=== PATIENT | male | born 1965 | race American Indian/Alaskan Native ===

== ENCOUNTER 2022-01-24 18:32 | Inpatient (IN) | payer OTHER ==
[2022-01-24] MEDS ORDERED: CLOPIDOGREL 300 MG TAB PO ONE (18:40)
[2022-01-24] MEDS ORDERED: HEPARIN 10,000 UNITS/10 ML VIAL IV ONE (18:40)
[2022-01-24] MEDS ORDERED: NITROGLYCERIN 2% OINT 1 GM TP ONE ×2 (18:41→19:04)
[2022-01-24] MEDS ORDERED: ALBUTEROL 2.5 MG/3 ML NEBU IH PRN (18:46)
[2022-01-24] MEDS ORDERED: oxyCODONE /ACETAMINOPHEN 5-325MG TAB PO PRN (18:46)
[2022-01-24] MEDS ORDERED: MORPHINE 4 MG/1 ML INJ IV PRN (18:46)
[2022-01-24] MEDS ORDERED: ACETAMINOPHEN 325 MG TAB PO PRN (18:46)
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
[2022-01-24] MEDS ORDERED: MIDAZOLAM 2 MG/2 ML INJ ONE (18:51)
[2022-01-24] MEDS ORDERED: ATROPINE 0.1% (1 MG/10 ML) CARDIAC SYRINGE ONE (18:51)
[2022-01-24] MEDS ORDERED: LIDOCAINE PF 100 MG/5 ML (CARDIAC SYRINGE) IV ONE (18:51)
[2022-01-24] MEDS ORDERED: EPINEPHrine 1 MG/10 ML SYRINGE ONE (18:51)
[2022-01-24] MEDS ORDERED: HEPARIN/NS 5000 UNIT/500ML 1,000 ML IR ONE (18:51)
[2022-01-24] MEDS ORDERED: NITROGLYCERIN SYRINGE 3 ML ONE (18:52)
[2022-01-24] MEDS ORDERED: LIDOCAINE (2%) 20 MG/1 ML VIAL 50 ML MDV INFILTRATI ONE (18:52)
[2022-01-24] MEDS ORDERED: VERAPAMIL 5 MG/2 ML INJ ONE (18:52)
[2022-01-24] MEDS ORDERED: PHENYLEPHRINE/NS 1,000 MCG/10 ML SYRINGE (OR USE) IV ONE (18:52)
[2022-01-24] MEDS ORDERED: fentaNYL 100 MCG/2 ML INJ ONE (18:52)
[2022-01-24] MEDS ORDERED: SODIUM CHLORIDE 0.9% 1000 ML 1,000 ML ONE (18:59)
[2022-01-24] MEDS ORDERED: HEPARIN/ 0.45% NACL DRIP 25,000 UNIT/500 ML BAG IV SCH ×2 (19:00→21:00)
[2022-01-24 19:06] LABS: Basophils % (Auto) 0.4 % (0.0-1.8); Eosinophils % (Auto) 0.2 % (0.0-4.3); Hematocrit 44.9 % (35.5-45.6); Lymphocytes # (Auto) 1.1 K/mm3 (1.2-5.4); Mean Corpuscular HGB Conc 33 % (32-34); Mean Corpuscular Volume 90 fl (84-94); Monocytes # (Auto) 0.8 K/mm3 (0.0-0.8); Monocytes % (Auto) 12.2 % (0.0-7.3); Platelet Count 188 K/mm3 (140-440); Red Blood Count 5.02 M/mm3 (3.65-5.03); Red Cell Distribution Width 12.8 % (13.2-15.2)
[2022-01-24 19:17] LABS: BUN/Creatinine Ratio 11; Blood Urea Nitrogen 9 mg/dL (9-20); Calcium 9.7 mg/dL (8.4-10.2); Hemolysis Index 418
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
[2022-01-24] MEDS ORDERED: SODIUM CHLORIDE 0.9% 1000 ML 1,000 ML IV SCH (20:00)
[2022-01-24 20:03] LABS: INR 1.04 (0.87-1.13); Partial Thromboplastin Time 28.6 Sec. (24.2-36.6)
[2022-01-24 20:05] LABS: BUN/Creatinine Ratio 11; Blood Urea Nitrogen 9 mg/dL (9-20); Calcium 10.1 mg/dL (8.4-10.2); Hemolysis Index 27
[2022-01-24] MEDS ORDERED: DEXTROSE 50% IN WATER (25GM) 50 ML SYRINGE IV PRN (20:36)
[2022-01-24] MEDS: METOPROLOL TARTRATE 25 MG TAB PO SCH (21:01)
--- NOTE | 2022-01-24 21:05 | Cardiac Catherization Report ---
DATE OF SERVICE: 01/24/2022 REASON FOR PROCEDURE: The patient is a 56-year-old man who presented to the hospital with several days of chest pain, which culminated in a syncopal episode at home this evening. He was brought to the Emergency Room by the library associate. On presentation, he was awake and alert, in no acute distress with no chest pain. The ECG, however, was significant for the presence of right bundle branch block and suggestion of ST segment elevation in leads II, III and F, concerning for a possible acute inferior STEMI. The ECG rhythm was an ectopic atrial rhythm. Due to the possible finding of a STEMI, emergency cardiac catheterization protocol was activated. PROCEDURES: 1. Left heart catheterization. 2. Selective left and right coronary angiography. 3. Left ventricular angiography. 4. Sedation time: The patient was prepped and draped under emergency protocol. The R radial approach was used, a 6F sheath inserted and radial cocktail administered. Selective angiography was performed. FINDINGS: HEMODYNAMICS: Left ventricular end-diastolic pressure was 10. Ascending aortic pressure 120/72. There was no significant pressure gradient on pullback across the aortic valve. CORONARY ANGIOGRAPHY: The left main coronary artery was angiographically normal. The left anterior descending artery was severely diseased in its proximal to mid segment. There was a 70% stenosis of the proximal LAD before a large first diagonal branch. Following the diagonal branch, there was a long diffuse, up to 90% stenosis of the mid segment, involving the origin of a smaller mid diagonal branch. The LAD and its diagonal branches maintained KENNETH 3 flow. The circumflex artery contained a complex, 85-90% bifurcation stenosis of its mid AV groove segment involving the origin of a large mid obtuse marginal branch. The circumflex and its obtuse marginal branches also demonstrated normal KENNETH 3 flow. The right coronary artery was dominant. This vessel contained a 70-80% stenosis of its mid segment, also associated with KENNETH 3 flow. There was normal left ventricular systolic function with ejection fraction 50-60%. There was mild hypokinesis of the focal segment of the mid inferior wall. CORONARY ANGIOPLASTY: After review of the angiograms, the catheters were removed, sheath removed and hemostasis achieved using a TR band. The patient was returned to the postprocedure unit in stable condition. There were no immediate complications. CONCLUSION: 1. Severe 3-vessel coronary artery disease. 2. Well preserved left ventricular systolic function, ejection fraction 50-60%. RECOMMENDATIONS: There is no complete occlusion and there is normal KENNETH 3 flow in the right coronary, circumflex artery territories. No acute intervention is indicated at this time and instead, the patient will be recommended for CT surgery assessment for multi-vessel revascularization with coronary artery bypass. TID: [id number] RECEIPT: [id number] NOHEMI/STEPHANIE EDWARDS
[2022-01-24] MEDS ORDERED: METOPROLOL TARTRATE 25 MG TAB PO SCH (22:00)
[2022-01-24] MEDS: INSULIN LISPRO 100 UNIT/ML SUB-Q SCH (22:14)
[2022-01-25 05:34] LABS: Basophils % (Auto) 0.2 % (0.0-1.8); Eosinophils % (Auto) 0.6 % (0.0-4.3); Hematocrit 36.8 % (35.5-45.6); Hemoglobin 12.3 gm/dl (11.8-15.2); Lymphocytes # (Auto) 1.7 K/mm3 (1.2-5.4); Lymphocytes % (Auto) 33.1 % (13.4-35.0); Mean Corpuscular HGB Conc 33 % (32-34); Mean Corpuscular Volume 90 fl (84-94); Monocytes # (Auto) 0.7 K/mm3 (0.0-0.8); Monocytes % (Auto) 13.7 % (0.0-7.3); Platelet Count 157 K/mm3 (140-440); Red Blood Count 4.09 M/mm3 (3.65-5.03)
[2022-01-25 05:44] LABS: BUN/Creatinine Ratio 11; Blood Urea Nitrogen 9 mg/dL (9-20); Calcium 8.5 mg/dL (8.4-10.2); Hemolysis Index 16
[2022-01-25] MEDS: METOPROLOL TARTRATE 25 MG TAB PO SCH (09:21)
[2022-01-25] MEDS: INSULIN LISPRO 100 UNIT/ML SUB-Q SCH (09:22)
--- NOTE | 2022-01-25 09:33 | Electrocardiograph Report ---
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
[2022-01-25] MEDS ORDERED: HEPARIN/ 0.45% NACL DRIP 25,000 UNIT/250 ML BAG IV SCH (10:00)
[2022-01-25] MEDS ORDERED: ASPIRIN EC 325 MG TAB PO SCH (10:00)
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
[2022-01-25 14:08] VITALS: BP 118/65
--- NOTE | 2022-01-25 14:12 | XRay Report ---
CHEST 1 VIEW 01/25/2022 12:03 PM INDICATION / CLINICAL INFORMATION: SOB. COMPARISON: None available. FINDINGS: SUPPORT DEVICES: None. HEART / MEDIASTINUM: No significant abnormality. LUNGS / PLEURA: No significant pulmonary or pleural abnormality. No pneumothorax. ADDITIONAL FINDINGS: No significant additional findings. IMPRESSION: 1. No acute findings. Signer Name: Darron Franz Jr, MD Signed: 01/25/2022 2:08 PM Workstation Name: [id number]
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
== END 2022-01-25 16:04 | disposition short-term general hospital (02) | DRG 280 ==
LOC: ED 18:32 → IMCU 18:46
PROVIDERS: ADMIT Internal Medicine; ATTEND Internal Medicine
PROC: 4A023N7 Measurement of Cardiac Sampling and Pressure, Left Heart, Percutaneous Approach (ICD-10-PCS; principal; 2022-01-24)
PROC: B2111ZZ Fluoroscopy of Multiple Coronary Arteries using Low Osmolar Contrast (ICD-10-PCS; 2022-01-24)
PROC: B2151ZZ Fluoroscopy of Left Heart using Low Osmolar Contrast (ICD-10-PCS; 2022-01-24)
DX: I21.3 ST elevation (STEMI) myocardial infarction of unspecified site (principal); I50.31 Acute diastolic (congestive) heart failure; I25.110 Atherosclerotic heart disease of native coronary artery with unstable angina pectoris; E11.9 Type 2 diabetes mellitus without complications; Z82.49 Family history of ischemic heart disease and other diseases of the circulatory system
CPT/HCPCS: 36415; 71045; 80048; 82962; 84484; 85025; 85520; 85610; 85730; 93005; 93458; 96374; 99285; G0378; J1815; J3490; C1894; J0171; J0461; J1644; J2001; J2250; J2370; J3010; J7030; Q9967